=== PATIENT | male | born 1945 ===

== ENCOUNTER 2016-07-01 08:06 | Emergency (ER) | payer OTHER ==
[2016-07-01 08:26] VITALS: BMI 30.7
[2016-07-01 08:33] VITALS: TEMP 97.7
[2016-07-01] MEDS ORDERED: Sodium Chloride 0.9% 500 ML IV STA (08:34)
--- NOTE | 2016-07-01 08:39 | ED PDOC ---
Arrival/HPI - General Chief Complaint: Abdominal Pain Time Seen by Provider: 07/01/16 08:27 Historian: Patient, Order Entry Representative (Shuttle Car Operator) - History of Present Illness Narrative History of Present Illness (Text): 07/01/16 08:36 A 71 year old male presents to the emergency room for the evaluation of diarrhea since yesterday. Patient notes several episodes of non-bloody diarrhea and cramping abdominal pain. Patient denies any nausea, vomiting, chest pain, shortness of breath, headaches, dizziness, or any other complaints. Patient denies a history of smoking or ETOH use. Time/Duration: 24 hours Symptom Onset: Sudden Symptom Course: Unchanged Quality: Cramping Severity Level: Mild Activities at Onset: Light Context: Home Associated Symptoms (Text): 07/01/16 09:14 Generalized abdominal pain since yesterday along with diarrhea. No nausea or vomiting. No genitourinary symptoms. No back pain. No fever. Patient appears to be in no distress. He has had 3 CT scans of his abdomen and pelvis in the last 7 months which have all been unrevealing. No travel or exposure. Past Medical History - Provider Review Nursing Documentation Reviewed: Yes - Infectious Disease Hx of Infectious Diseases: None - Tetanus Immunization Tetanus Immunization: Unknown - Reproductive Currently : No - Cardiac Hx Cardiac Disorders: Yes - Pulmonary Hx Respiratory Disorders: No - Neurological Hx Neurological Disorder: No - HEENT Hx HEENT Disorder: No - Renal Hx Renal Disorder: No - Endocrine/Metabolic Hx Endocrine Disorders: No - Hematological/Oncological Hx Anemia: Yes - Integumentary Hx Dermatological Disorder: No - Musculoskeletal/Rheumatological Hx Falls: No - Gastrointestinal Hx Gastritis: Yes Hx Pancreatitis: Yes - Genitourinary/Gynecological Hx Genitourinary Disorders: Yes Hx Prostate Problems: Yes - Psychiatric Hx Depression: Yes Hx Substance Use: No - Surgical History Other/Comment: back cyst surgery - Anesthesia Hx Anesthesia: Yes Hx Anesthesia Reactions: No Hx Malignant Hyperthermia: No - Suicidal Assessment Feels Threatened In Home Enviroment: No Family/Social History - Physician Review Nursing Documentation Reviewed: Yes Family/Social History: No Known Family HX Smoking Status: Never Smoked Hx Alcohol Use: No Hx Substance Use: No Allergies/Home Meds Allergies/Adverse Reactions: Allergies No Known Allergies Allergy (Verified 07/01/16 08:26) Home Medications: Home Meds Medication Instructions Recorded Confirmed Aspirin [Ecotrin] 81 mg PO DAILY 11/27/15 07/01/16 Atorvastatin [Lipitor] 20 mg PO HS 01/08/16 07/01/16 Loratadine [Claritin] 10 mg PO DAILY 02/29/16 07/01/16 Dicyclomine [Bentyl] 10 mg PO BID 03/30/16 07/01/16 Pantoprazole [Protonix EC Tab] 40 mg PO DAILY 03/30/16 07/01/16 Dicyclomine [Dicyclomine HCl] 10 mg PO DAILY 07/01/16 07/01/16 Rivaroxaban [Xarelto] 20 mg PO DAILY 07/01/16 07/01/16 Review of Systems - Physician Review All systems were reviewed & negative as marked: Yes - Review of Systems Constitutional: absent: Fatigue, Fevers Respiratory: absent: SOB, Cough Cardiovascular: absent: Chest Pain, Palpitations, Syncope Gastrointestinal: Abdominal Pain (Cramping), Diarrhea. absent: Constipation, Nausea, Vomiting Genitourinary Male: absent: Dysuria, Frequency, Hematuria Neurological: absent: Headache, Dizziness Physical Exam Vital Signs Reviewed: Yes Vital Signs Temp Pulse Resp BP Pulse Ox 07/01/16 08:44 73 20 132/78 98 07/01/16 08:32 97.7 F 64 18 118/62 98 Temperature: Afebrile Blood Pressure: Normal Pulse: Regular Respiratory Rate: Normal Appearance: Positive for: Well-Appearing, Non-Toxic, Comfortable Pain Distress: None Mental Status: Positive for: Alert and Oriented X 3 - Systems Exam Head: Present: Atraumatic, Normocephalic Pupils: Present: PERRL Extroacular Muscles: Present: EOMI Conjunctiva: Present: Normal Mouth: Present: Moist Mucous Membranes Pharnyx: No: ERYTHEMA, EXUDATE, TONSILS ENLARGED Neck: Present: Normal Range of Motion. No: MIDLINE TENDERNESS, Paraspinal Tenderness Respiratory/Chest: Present: Clear to Auscultation, Good Air Exchange. No: Respiratory Distress, Accessory Muscle Use Cardiovascular: Present: Regular Rate and Rhythm, Normal S1, S2. No: Murmurs Abdomen: Present: Normal Bowel Sounds. No: Tenderness, Distention, Peritoneal Signs, Rebound, Guarding Back: No: CVA Tenderness, Midline Tenderness Upper Extremity: Present: Normal ROM. No: Tenderness, Swelling Lower Extremity: Present: Normal ROM. No: Tenderness, Swelling Neurological: Present: GCS=15, CN II-XII Intact, Speech Normal, Motor Func Grossly Intact Skin: Present: Warm, Dry, Normal Color. No: Rashes Psychiatric: Present: Alert, Oriented x 3, Normal Insight, Normal Concentration Medical Decision Making ED Course and Treatment: 07/01/16 08:44 Impression: A 71 year old male with diarrhea and abdominal pain since yesterday. No acute findings on PE. Plan: -- Labs -- Reassess and disposition Progress Notes: 07/01/16 09:31 EKG shows normal sinus rhythm rate approximately [address] or T-wave changes 07/01/16 10:04 Symptoms improved. - Lab Interpretations Lab Results: 07/01/16 09:10 07/01/16 09:10 Lab Results 07/01/16 09:10: Sodium 142, Potassium 3.7, Chloride 103, Carbon Dioxide 28, Anion Gap 15, BUN 14, Creatinine 1.1, Est GFR ( Amer) > 60, Est GFR (Non- Af Amer) > 60, Random Glucose 83, Calcium 9.2, Total Bilirubin 0.9, AST 24, ALT 28, Alkaline Phosphatase 78, Total Protein 7.5, Albumin 4.0, Globulin 3.6, Albumin/Globulin Ratio 1.1, Lipase 72 07/01/16 09:10: WBC 4.3 L, RBC 3.95, Hgb 12.7 L, Hct 36.2 L, MCV 91.6, MCH 32.2 , MCHC 35.1, RDW 12.7, Plt Count 146, MPV 9.4, Gran % 66.7, Lymph % (Auto) 23.3 , Storey % (Auto) 8.9 H, Eos % (Auto) 0.9 L, Baso % (Auto) 0.2, Gran # 2.83, Lymph # 1.0 L, Storey # 0.4, Eos # 0.0, Baso # 0.01 I have reviewed the lab results: Yes - Medication Orders Current Medication Orders: Discontinued Medications Sodium Chloride (Sodium Chloride 0.9%) 500 mls @ 1,000 mls/hr IV .Q30M STA Stop: 07/01/16 09:03 Last Admin: 07/01/16 08:58 Dose: 1,000 mls/hr - Scribe Statement The provider has reviewed the documentation as recorded by the Scribe Jacinto Gooden Provider Scribe Attestation: All medical record entries made by the Scribe were at my direction and personally dictated by me. I have reviewed the chart and agree that the record accurately reflects my personal performance of the history, physical exam, medical decision making, and the department course for this patient. I have also personally directed, reviewed, and agree with the discharge instructions and disposition. Disposition/Present on Arrival - Present on Arrival Any Indicators Present on Arrival: No History of DVT/PE: Yes History of Uncontrolled Diabetes: No Urinary Catheter: No History of Decub. Ulcer: No History Surgical Site Infection Following: Orthopedic Procedures - Disposition Have Diagnosis and Disposition been Completed?: Yes Diagnosis: Diarrhea, Abdominal pain Disposition: HOME/ ROUTINE Disposition Time: 10:05 Patient Plan: Discharge Condition: GOOD Discharge Instructions (ExitCare): Acute Diarrhea (ED), Acute Abdominal Pain ( ED) Additional Instructions: Follow-up with PMD. Follow up in ER as needed. Symptomatic treatment. Referrals: Yenifer Fernandez, [Primary Care Provider] - Follow up with primary
[2016-07-01 09:22] LABS: ADD MANUAL DIFF? NO
[2016-07-01 09:26] LABS: BASO # 0.01 K/mm3 (0.0-2.0); BASO % 0.2 % (0.0-3.0); EOS % 0.9 % (1.5-5.0); GRAN # 2.83 (1.4-6.5); GRAN % 66.7 % (50.0-68.0); HEMATOCRIT 36.2 % (42.0-52.0); LYMPH % 23.3 % (22.0-35.0); MEAN CELL VOLUME 91.6 fL (80.0-105.0); MEAN CORPUSCULAR HEMOGLOBIN 32.2 pg (25.0-35.0); MEAN CORPUSCULAR HGB CONC 35.1 g/dl (31.0-37.0); MEAN PLATELET VOLUME 9.4 fl (7.0-11.0); MONO # 0.4 (0.1-0.6); MONO % 8.9 % (1.0-6.0); PLATELET COUNT 146 10^3/uL (120.0-450.0); RED CELL DISTRIBUTION WIDTH 12.7 % (11.5-14.5); WHITE BLOOD COUNT 4.3 10^3/ul (4.5-11.0)
[2016-07-01 09:37] LABS: ALB/GLOB RATIO 1.1 (1.1-1.8); ALKALINE PHOSPHATASE 78 U/L (38-133); ALT/SGPT 28 U/L (7-56); AST/SGOT 24 U/L (15-59); BILIRUBIN,TOTAL 0.9 mg/dL (0.2-1.3); BLOOD UREA NITROGEN 14 mg/dL (7-21); CALCIUM 9.2 mg/dL (8.4-10.5); CARBON DIOXIDE 28 mmol/L (21-33); CHLORIDE 103 mmol/L (98-107); GFR AFRICAN-AMERICAN > 60; GLUCOSE,RANDOM 83 mg/dL (70-110); LIPASE 72 U/L (23-300); POTASSIUM 3.7 mmol/L (3.6-5.0); SODIUM 142 mmol/L (132-148); TOTAL PROTEIN 7.5 g/dL (5.8-8.3)
[2016-07-01 10:10] VITALS: O2SAT 99
[2016-07-01 10:29] VITALS: BP 164/57; PULSE 90; RESP 18
--- NOTE | 2016-07-02 13:17 | CARD ---
APPROVED REPORT EKG Measurement Heart [id number] <Conclusion> Normal sinus rhythm Normal ECG
== END 2016-07-01 10:27 | disposition home or self-care (01) ==
LOC: ED 08:06
DX: R19.7 Diarrhea, unspecified (principal); R10.9 Unspecified abdominal pain
CPT/HCPCS: 80053; 83690; 85025; 93005; 96360; 99283; J7040